=== PATIENT | female | born 1995 ===

== ENCOUNTER 2016-09-30 22:00 | Emergency (ER) | payer OTHER ==
[2016-09-30 22:08] VITALS: BP 143/92; RESP 16; TEMP 98.4
[2016-09-30] MEDS ORDERED: CEPHALEXIN 500 MG CAP PO ONE (22:34)
--- NOTE | 2016-09-30 22:34 | EDPHY ---
H & P Stated Complaint: bump on upper back Time Seen by Provider: 09/30/16 22:15 HPI/ROS: HPI The patient presents with a lump on her mid upper back which has been present for the last several hours, and getting progressively worse. It is moderate in severity. She rates the pain as mild. It is not itchy. She has no other lesions anywhere. She has no fevers or chills, no nausea or vomiting. She has no prior history of similar. She was out in the sun and has a sunburn on her right shoulder. REVIEW OF SYSTEMS Constitutional: No fever, no chills. Neurological: No headache. PMHx: Healthy Soc Hx: College student, here with friends PHYSICAL General Appearance: Alert, no distress Eyes: Pupils equal and round no pallor or injection ENT, Mouth: Mucous membranes moist Respiratory: Breathing comfortably Cardiovascular: Regular rate and rhythm Neurological: A&O, moves all extremities Skin: At the midline at level of C7 there is a 3 x 4 cm area of induration, erythema, tenderness, with slight brownish discoloration centrally, Warm and dry Musculoskeletal: Neck is supple non tender Psychiatric: Patient is oriented X 3, there is no agitation Source: Patient - Personal History LMP (Females 10-55): 1-7 Days Ago Current Tetanus/Diphtheria Vaccine: Yes Current Tetanus Diphtheria and Acellular Pertussis (TDAP): Yes - Medical/Surgical History Hx Asthma: No Hx Chronic Respiratory Disease: No Hx Diabetes: No Hx Cardiac Disease: No Hx Renal Disease: No Hx Cirrhosis: No Hx Alcoholism: No Hx HIV/AIDS: No Hx Splenectomy or Spleen Trauma: No Other PMH: denies - Social History Smoking Status: Never smoked Constitutional: Initial Vital Signs Temperature (C) 36.9 C 09/30/16 22:05 Heart Rate 111 H 09/30/16 22:05 Respiratory Rate 16 09/30/16 22:05 Blood Pressure 143/92 H 09/30/16 22:05 O2 Sat (%) 94 09/30/16 22:05 O2 Delivery Mode Room Air Allergies/Adverse Reactions: No Known Allergies Allergy (Unverified 09/30/16 22:05) Home Medications: Medication Instructions Recorded Bcp 09/30/16 Cephalexin [Keflex (*)] 500 mg PO Q6H #28 cap 09/30/16 Medical Decision Making Differential Diagnosis: This is a 21-year-old female who is healthy who presents with rash of upper back which has been present for the last several hours. She has no prior history of similar. Differential diagnosis includes cellulitis, abscess, 1st degree burn. This most likely is a cellulitis and I plan on giving her antibiotics for this. She has no prior history of abscesses, thus I feel Keflex will provide appropriate coverage. I have encouraged her to use antibiotic ointment. We have discussed return precautions. She is discharged in good condition. - Data Points Medications Given: Discontinued Medications Cephalexin HCl (Keflex) 500 mg PO EDNOW ONE PRN Reason: Protocol Stop: 09/30/16 22:35 Last Admin: 09/30/16 22:42 Dose: 500 mg Departure - Departure Disposition: Home, Routine, Self-Care Clinical Impression: Cellulitis Condition: Good Instructions: Cellulitis (ED) Additional Instructions: You can put an antibiotic ointment on the rash for the next few days. Otherwise , keep it covered. It is okay to take a shower and get it wet. Please return if it gets any bigger, more red, more painful, if he develops a fever or any other concerning symptoms. Referrals: GARRICK PEREZ [Other] - As per Instructions Prescriptions: Cephalexin [Keflex (*)] 500 mg PO Q6H #28 cap
[2016-09-30 22:43] VITALS: PULSE 101; O2SAT 96
== END 2016-09-30 22:43 | disposition home or self-care (01) ==
DX: L03.312 Cellulitis of back [any part except buttock and flank] (principal)